=== PATIENT | male | born 1990 | race Caucasian/White ===

== ENCOUNTER → 2016-12-04 | Outpatient (CLI) | payer OTHER ==
[~2016-12-04] MED LIST: CLINDAMYCIN 1%60 M1 TP; FISH OIL 1,0001 EAC5 PO; MULTIVITAMINS PO; NORCO 5-325 TA1 EACH PO; PHENERGAN 25 MG25 M1 PO; VITAMIN D400 UNI1 PO; VYVANSE40 MG PO
== END ==
LOC: SLEEPLAB 11-21 19:10
DX: G47.33 Obstructive sleep apnea (adult) (pediatric) (principal)